=== PATIENT | female | born 1965 | race Caucasian/White ===

== ENCOUNTER 2018-01-25 03:35 | Inpatient (IN) | payer OTHER ==
[2018-01-25] VITALS (10 sets, daily range): BP systolic 98–134; BP diastolic 46–69
[~2018-01-25] VITALS: Ht 160 cm; Wt 92.1 kg
--- NOTE | 2018-01-25 03:35 | NUR ---
BIBA TO ER BED 10
--- NOTE | 2018-01-25 03:40 | NUR ---
52/F CAME IN W/ C/O 07/10 GENERALIZED ABD PAIN, ACUTE ONSET X YESTERDAY. N/V X 2, DENIES HEMATEMESIS, DIARRHEA/CONSTIPATION. ABD SOFT, ROUND, +TENDERNESS GENERALIZED. PMH: SCHIZOPHRENIA, BIPOLAR D/O, HYSTERECTOMY
[2018-01-25] MEDS ORDERED: DICYCLOMINE HCL LIQUID 20 MG, ALUMINUM HYD/MAG/SIMETHICONE 30 ML, LIDOCAINE VISCOUS 2% ... PO ONE ×3 (03:55)
[2018-01-25] MEDS ORDERED: ONDANSETRON 4 MG ODT PO ONE (03:55)
[2018-01-25 04:09] LABS: BASOPHILS % (AUTO) 0.1 % (0.0-2.0); HEMATOCRIT 43.3 % (36-48); HEMOGLOBIN 14.4 g/dL (12.0-16.0); LYMPHOCYTES # (AUTO) 2.1 K/uL (2.5-16.5); LYMPHOCYTES % (AUTO) 15.2 % (20.5-51.1); MEAN CORPUSCULAR HEMOGLOBIN 31 pg (27-31); MEAN CORPUSCULAR HGB CONC 33 g/dL (33-37); MONOCYTES # (AUTO) 0.5 K/uL (0.8-1.0); MONOCYTES % (AUTO) 3.5 % (1.7-9.3); NEUTROPHILS # (AUTO) 11.3 K/uL (1.8-7.7); NEUTROPHILS % (AUTO) 81.2 % (42.2-75.2); PLATELET COUNT (AUTO) 181 K/uL (140-450); RED BLOOD CELL COUNT(AUTO) 4.71 MIL/uL (4.20-5.40); RED CELL DISTRIBUTION WIDTH 13.5 % (11.6-13.7)
[2018-01-25 04:21] LABS: ANION GAP 13.4 (8-16); CARBON DIOXIDE 26.6 mmol/L (21-32); CREATININE 0.8 mg/dL (0.6-1.3)
[2018-01-25 04:26] LABS: ALBUMIN 3.8 g/dL (3.4-5.0); TOTAL BILIRUBIN 0.7 mg/dL (0.0-1.0)
[2018-01-25] MEDS ORDERED: NACL 0.9% 1,000 ML IV ONE (04:50)
[2018-01-25] MEDS ORDERED: KETOROLAC 30 MG/ML VIAL IVP ONE (04:50)
[2018-01-25] MEDS ORDERED: NACL 0.9% 1,000 ML IV SCH (05:08)
[2018-01-25] MEDS ORDERED: LEVOFLOXACIN 750 MG/D5W PREMIX 150 ML IV ONE (05:10)
[2018-01-25] MEDS ORDERED: metroNIDAZOLE 500 MG/NS PREMIX 100 ML IV ONE (05:10)
--- NOTE | 2018-01-25 05:10 | NUR ---
PT REPORTS SHE IS ADVENTISM AND IS UNABLE TO RECEIVE BLOOD AND BLOOD PRODUCTS
[2018-01-25] MEDS ORDERED: ESK300 PO (05:21)
[2018-01-25] MEDS ORDERED: OLAN20TA1 PO (05:21)
[2018-01-25] MEDS ORDERED: TEMA15CA11 PO (05:21)
[2018-01-25] MEDS ORDERED: FLUO10CA21 PO (05:21)
--- NOTE | 2018-01-25 05:33 | NUR ---
Patient will be admitted to care of VACA. Admited to MS. Will go to room 119B. Belongings list completed. Report to LEATHA MARTINEZ. IV INFUSING. LEATHA MARTINEZ INFORMED TO GIVE LEVAQUIN IVPB FIRST DOSE
--- NOTE | 2018-01-25 05:35 | NUR ---
RECEIVED PT FROM ER IN [facility] FOR CONTINUITY OF CARE. PT IS ABLE TO WALK TO BED. AWAKE AOX4. IV L WRIST 20G NS BOLUS 1L. NO SOB, NO S/S OF DISTRESS. SKIN INTACT, VITALS WNL. PT IS NPO. WILL CONTINUE TO MONITOR, BED LOWERED CALL LIGHT WITHIN REACH AND PT ORIENTED TO ROOM.
[2018-01-25 05:46] LABS: PROTHROMBIN TIME 10.5 secs (10.8-13.4)
--- NOTE | 2018-01-25 07:31 | NUR ---
GAVE REPORT TO DAY SHIFT NURSE FOR CONTINUITY OF CARE.
--- NOTE | 2018-01-25 07:32 | NUR ---
RECEIVED REPORT FROM DIRECTOR GLOBAL DEVELOPMENT NURSE AT BEDSIDE FOR CONTINUITY OF CARE. PT IS AWAKE AND ORIENTED. NPO. PT IS C/O PAIN IN ABD. TOLERABLE AT THIS TIME. IV L WRIST 20G NS AT 100ML INFUSING. AT BEDSIDE. O/R NURSES HERE TO TAKE PT FOR PROCEDURE. DR OTT IS THE SURGEON, FOR APPENDECTOMY. WILL AWAIT PT'S RETURN.
[2018-01-25] MEDS: BUPIVACAINE-MPF 0.25% 30 ML VIAL INJ ONE ×2 (07:56→09:00)
[2018-01-25] MEDS ORDERED: MIDAZOLAM 2 MG/2 ML VIAL ONE ×2 (07:58→08:20)
[2018-01-25] MEDS ORDERED: MEPERIDINE 50 MG/ML SYR ONE (07:58)
[2018-01-25] MEDS ORDERED: fentaNYL 0.05 MG/ML VIAL ONE ×2 (07:58→08:20)
[2018-01-25] MEDS ORDERED: GLYCOPYRROLATE 0.2 MG/ML VIAL ONE (08:00)
[2018-01-25] MEDS ORDERED: NEOSTIGMINE 1:1000 10 MG/10 ML VIAL ONE (08:00)
[2018-01-25] MEDS ORDERED: DEXAMETHASONE 4 MG/ML VIAL ONE (08:00)
[2018-01-25] MEDS ORDERED: PROPOFOL 200 MG/20 ML VIAL IV ONE (08:00)
[2018-01-25] MEDS ORDERED: ONDANSETRON 4 MG/2 ML VIAL ONE (08:00)
[2018-01-25] MEDS ORDERED: ROCURONIUM 50 MG/5 ML VIAL IV ONE (08:00)
[2018-01-25] MEDS ORDERED: SUCCINYLCHOLINE CHLORIDE 200 MG/10 ML VIAL IVP ONE (08:00)
[2018-01-25] MEDS ORDERED: DESFLURANE 240 ML BTL INH ONE (08:00)
[2018-01-25] MEDS ORDERED: MORPHINE SULFATE 4 MG/ML SYR ONE (08:20)
[2018-01-25] MEDS ORDERED: ENOXAPARIN 40 MG/0.4 ML SYR SUBQ SCH (09:00)
--- NOTE | 2018-01-25 09:13 | NUR ---
PATIENT HAS BEEN SCREENED AND CATEGORIZED LOW NUTRITION RISK. PATIENT WILL BE SEEN WITHIN 7 DAYS OF ADMISSION. 01/31/[address]
[2018-01-25] MEDS ORDERED: MORPHINE SULFATE 4 MG/ML SYR IVP PRN ×5 (09:15)
[2018-01-25] MEDS ORDERED: MIDAZOLAM 2 MG/2 ML VIAL IV ONE ×2 (09:15)
[2018-01-25] MEDS ORDERED: MORPHINE SULFATE 2 MG/ML SYR IVP PRN (09:15)
[2018-01-25] MEDS ORDERED: METOCLOPRAMIDE 10 MG/2 ML INJ VIAL IVP PRN ×2 (09:15)
[2018-01-25] MEDS ORDERED: diphenhydrAMINE 50 MG/ML VIAL IVP PRN (09:55)
[2018-01-25] MEDS ORDERED: ONDANSETRON 4 MG/2 ML VIAL IVP PRN (09:55)
[2018-01-25] MEDS ORDERED: MEPERIDINE 25 MG/ML SYR IVP PRN (09:55)
--- NOTE | 2018-01-25 11:11 | NUR ---
RETURNED FROM POST OP. PT IS AWAKE AND ORIENTED. NAUSEATED. GAVE HER A VOMIT BAG. PT HAD A LAP APPENDECTOMY. PT IS IN STABLE CONDITION. RUPTURED AND ABCESS. 3 ABD INCISION WITH DERMABOND. BESSIE DRAIN IN PLACE. V/S WITHIN NORMAL RANGE. BESSIE DRAIN 30ML DISCARDED. WILL CONTINUE TO MONITOR PT.
--- NOTE | 2018-01-25 12:10 | NUR ---
CHECKED ON PT. EMPTIED 30ML OF BLOOD FROM BESSIE DRAIN. WILL CONTINUE TO MONITOR PT.
--- NOTE | 2018-01-25 12:21 | NUR ---
CM NOTE INITIAL REVIEW FAXED TO [facility] [phone] VIJI # [phone]
[2018-01-25] MEDS: NACL 0.9% 1,000 ML IV SCH (13:10)
[2018-01-25] MEDS: metroNIDAZOLE 500 MG/NS PREMIX 100 ML IV SCH ×2 (13:11→21:24)
[2018-01-25] MEDS: MORPHINE SULFATE 4 MG/ML SYR IVP PRN ×2 (17:08→21:25)
--- NOTE | 2018-01-25 17:10 | NUR ---
ADMINISTERED PAIN MED. PAIN 03/10. PT TOLERATED WELL. EMPTIED 40ML OF BLOOD FROM BESSIE DRAIN. WILL CONTINUE TO MONITOR PT.
--- NOTE | 2018-01-25 19:15 | NUR ---
ENDORSED PT TO THE HEAD OF STORE OPERATIONS NURSE AT BEDSIDE FOR CONTINUITY OF CARE. PT IS IN STABLE CONDITION.
--- NOTE | 2018-01-25 19:16 | NUR ---
RECEIVED PT REPORT AT BEDSIDE FROM HONG FOR CONTINUITY OF CARE. PT IS CURRENTLY HAPPY WITH FAMILY VISITS. IV NOTED L WRIST 2G AT NS 120ML/HR. NO SOB. NO S/S OF DISTRESS. BED LOWERED. CALL LIGHT WITHIN REACH. WILL CONTINUE TO MONITOR.
--- NOTE | 2018-01-25 20:00 | NUR ---
PT CALLS MULTIPLE TIMES FOR DIFFERENT NEEDS. PAIN, ANXIETY, WATER, ECT. PT REQUEST TO HAVE HER PSYCH MEDS. PAGED AWAITING CALL BACK.
--- NOTE | 2018-01-26 00:30 | NUR ---
PT IS SLEEPING NO SOB NO S/S OF DISTRESS ON ROOM AIR. WILL CONTINUE TO MONITOR.
--- NOTE | 2018-01-26 02:30 | NUR ---
PT REQUESTING PAIN MEDS. ADMIN PAIN MEDS AND TOLD HER TO GET SOME REST. WILL CONTINUE TO MONITOR.
[2018-01-26] MEDS: NACL 0.9% 1,000 ML IV SCH ×4 (02:33→19:50)
[2018-01-26] MEDS: MORPHINE SULFATE 4 MG/ML SYR IVP PRN ×3 (02:34→12:59)
[2018-01-26] MEDS: metroNIDAZOLE 500 MG/NS PREMIX 100 ML IV SCH ×3 (04:42→22:00)
--- NOTE | 2018-01-26 05:33 | NUR ---
ASSESSED PT IS ASLEEP RESTING NO SOB NO S/S OF DISTRESS. WILL CONTINUE TO MONITOR.
[2018-01-26] MEDS: LEVOFLOXACIN 750 MG/D5W PREMIX 150 ML IV SCH (06:13)
[2018-01-26 07:23] LABS: HEMATOCRIT 39.7 % (36-48); HEMOGLOBIN 13.1 g/dL (12.0-16.0); LYMPHOCYTES # (AUTO) 2.8 K/uL (2.5-16.5); LYMPHOCYTES % (AUTO) 14.5 % (20.5-51.1); MEAN CORPUSCULAR HEMOGLOBIN 31 pg (27-31); MEAN CORPUSCULAR HGB CONC 33 g/dL (33-37); MEAN CORPUSCULAR VOLUME 93.6 fL (80-94); MONOCYTES # (AUTO) 1.3 K/uL (0.8-1.0); MONOCYTES % (AUTO) 6.7 % (1.7-9.3); NEUTROPHILS # (AUTO) 15.2 K/uL (1.8-7.7); NEUTROPHILS % (AUTO) 78.8 % (42.2-75.2); PLATELET COUNT (AUTO) 194 K/uL (140-450); RED BLOOD CELL COUNT(AUTO) 4.24 MIL/uL (4.20-5.40); WHITE BLOOD COUNT (AUTO) 19.3 K/uL (4.8-10.8)
--- NOTE | 2018-01-26 07:27 | NUR ---
GAVE PT REPORT TO DAYSHIFT NURSE AT BEDSIDE FOR CONTINUITY OF CARE.
--- NOTE | 2018-01-26 07:28 | NUR ---
RECEIVED REPORT FROM ASSISTANT DIRECTOR OF ADMISSIONS NURSE AT BEDSIDE FOR CONTINUITY OF CARE. PATIENT AWAKE AND ALERT, ABLE TO AMBULATE WITH ASSIST, RESPIRATIONS EVEN AND UNLABORED. NO DISTRESS OR SOB NOTED 2L O2 VIA NC. IV INTACT, PATENT, AND ASYMPTOMATIC, INFUSING IV WELL. UPDATED BOARD. UPDATED PATIENT WITH PLAN OF CARE. PATIENT VERBALIZED UNDERSTANDING. SAFETY PRECAUTION IN PLACE, BED ON LOWEST SETTING, BED ALARM ON, CALL LIGHT WITHIN REACH, WILL CONTINUE TO MONITOR PATIENT.
[2018-01-26 07:38] LABS: ALBUMIN 3.3 g/dL (3.4-5.0); ANION GAP 14.8 (8-16); CARBON DIOXIDE 24.5 mmol/L (21-32); MAGNESIUM 1.9 mg/dL (1.8-2.4); POTASSIUM 4.3 mmol/L (3.5-5.1); TOTAL BILIRUBIN 1.2 mg/dL (0.0-1.0)
[2018-01-26 08:00] VITALS: BP 143/78
[2018-01-26] MEDS: ONDANSETRON 4 MG/2 ML VIAL IVP PRN ×2 (08:50→15:19)
--- NOTE | 2018-01-26 09:03 | NUR ---
PATIENT VOMITED. ZOFRAN PRN GIVEN. PT ALSO C/O 6/10 ABD PAIN. MORPHINE PRN GIVEN. PT TOLERATED THEM WELL. AND FAMILY FRIEND AT BEDSIDE. SAFETY PRECAUTION IN PLACE, CALL LIGHT WITHIN REACH. WILL CONTINUE TO MONITOR PATIENT.
[2018-01-26] MEDS: LORazepam 2 MG/ML VIAL IVP PRN (11:26)
--- NOTE | 2018-01-26 11:26 | NUR ---
PATIENT AGITATED AND ANXIOUS, ASKING FOR WHEN THE DOCTOR WILL BE IN TO SEE HER, AND WHEN SHE CAN HAVE HER MEDICATIONS. INFORMED THE PATIENT THAT THE DOCTOR IS ON HER WAY AND WILL BE HERE TODAY TO SEE HER. PATIENT VERBALIZED UNDERSTANDING. ATIVAN PRN ADMINISTERED. PATIENT TOLERATED IT WELL. HR 125 AND PULSE OX 94% ON 4L O2 VIA NC. AND FRIEND AT BEDSIDE. PATIENT DENIES PAIN AT THIS TIME. SAFETY PRECAUTION IN PLACE, BED ON LOWEST SETTING, CALL LIGHT WITHIN REACH, WILL CONTINUE TO MONITOR PATIENT.
--- NOTE | 2018-01-26 12:59 | NUR ---
PT C/O 03/10 ABD PAIN. MORPHINE PRN ADMINISTERED. PATIENT TOLERATING IT WELL. HR 129 PULSE OX 92% ON 4L VIA NC. PATIENT STILL AGITATED ASKING FOR HER MEDICATION AND TO SEE THE DOCTOR. ASSURED PT THAT DOCTOR WILL BE IN TO SEE HER. PATIENT VERBALIZED UNDERSTANDING.
--- NOTE | 2018-01-26 13:15 | NUR ---
PATIENT HR 138 PULSE OX 90%, BREATHING LABORED AND WHEEZING, PAGED RT. RT CAME AND ASSESSED THE PATIENT. CANNOT GIVE BREATHING TREATMENT AT THIS TIME BECAUSE OF HIGH PULSE. WILL CONTINUE TO FREQUENTLY MONITOR AND ASSESS THE PATIENT. AND FRIEND AT BEDSIDE. BESSIE DRAIN 20 ML OF SANGUINOUS FLUID. SAFETY PRECAUTION IN PLACE, CALL LIGHT WITHIN REACH, WILL CONTINUE TO MONITOR PATIENT.
--- NOTE | 2018-01-26 15:19 | NUR ---
PATIENT FELT NAUSEATED, REQUESTED FOR ZOFRAN. ZOFRAN PRN ADMINISTERED. PATIENT TOLERATED IT WELL. AND FRIEND AT BEDSIDE. NO SIGNS OF DISTRESS OR SOB NOTED ON ROOM AIR, PATIENT DENIES PAIN. SAFETY PRECAUTION IN PLACE, BED ON LOWEST SETTING, BED ALARM ON, CALL LIGHT WITHIN REACH, WILL CONTINUE TO MONITOR PATIENT.
[2018-01-26 16:00] VITALS: BP 139/83
[2018-01-26] MEDS: LITHIUM CARBONATE 300 MG TAB PO SCH ×2 (17:43→21:00)
--- NOTE | 2018-01-26 17:43 | NUR ---
ORDERED MEDICATION GIVEN. PATIENT TOLERATING IT WELL. HR 109, PULSE OX 92% ON 2L O2 VIA NC. AT BEDSIDE. PATIENT EATING DINNER. SAFETY PRECAUTION IN PLACE, BED ON LOWEST SETTING, CALL LIGHT WITHIN REACH, WILL CONTINUE TO MONITOR PATIENT.
--- NOTE | 2018-01-26 19:25 | NUR ---
REPORT GIVEN TO OBSTETRICS NURSE PRACTITIONER NURSE AT BEDSIDE FOR CONTINUITY OF CARE. PATIENT IN STABLE CONDITION.
--- NOTE | 2018-01-26 19:55 | NUR ---
PATIENT WAS ASSISTED TO THE BATHROOM TO VOID. SHE WAS ABLE TO GO BACK TO BED BUT WAS NOTED TO BE SHORT OF BREATH AND HEART RATE WAS ELEVATED. PATIENT WAS ENDORSED TO STAFF NURSE AND WHEN HE NOTED CHANGE OF CONDITION [facility]PON[facility] WAS CALLED.
[2018-01-26] MEDS: TEMAZEPAM 15 MG CAP PO SCH (21:00)
[2018-01-26] MEDS: OLANZapine 5 MG TAB PO SCH (21:00)
--- NOTE | 2018-01-26 21:25 | NUR ---
RECEIVED PATIENT REPORT FROM JUAN BOLAND. PATIENT IS LETHARGIC AND IS HAVING LABORED BREATHING. CALLED [facility]PON[facility]
[2018-01-26] MEDS ORDERED: ALBUTEROL SULFATE/IPRATROPIU 3 ML SOL IH ONE (21:34)
--- NOTE | 2018-01-26 21:35 | NUR ---
SCHEDULED PO MEDS NOT ADMINISTERED. PATIENT IS LETHARGIC
[2018-01-26] MEDS ORDERED: ALBUTEROL SULFATE/IPRATROPIU 3 ML SOL IH PRN (21:50)
--- NOTE | 2018-01-26 21:50 | NUR ---
RAP[facility] RESPONSE WAS CALLED FOR THE PT WITH SOB , SAT 94%, BS ARE WHEEZING AND RALES.GAVE PT A HHN TX WITH DUONEB, SAT IMPROVED. PT WAS TRANSFER TO ICU3, ABG WAS DONE .
--- NOTE | 2018-01-26 21:50 | NUR ---
PATIENT RECEIVING BREATHING TX. SPOKE WITH DR FIELDS AND NOTIFIED HIM ABOUT THE PATIENT'S CHANGE IN LEVEL OF CONSCIOUSNESS AND BREATHING PATTERN . ORDERS RECEIVED
[2018-01-26 22:05] VITALS: BP 135/81
--- NOTE | 2018-01-26 22:05 | NUR ---
RECEIVED PT FROM [facility] FLOOR,REPORT GIVEN BY SANDY MARTINEZ. PT IS S/S RAPID RESPONSE D/T SOB,PER REPORT PT WAS GOING TO USE REST ROOM AND GET SOB AND LETHARGIC.PT IS SO SLEEPY,EASY TO AWAKE, ALERT, ABLE TO ANSWER SIMPLE QUESTION AT THIS TIME. PT COME WITH HER . PT S/P APPENDECTOMY ON 01/25/18 BY . PT ON O2 AT 4 LPM AT THIS TIME WITH SPO2 95 %, ELAINA LUNGS SOUND WHEEZING,TACHYCARDIA ON MONITOR, NO EDEMA NOTED. IV SITE TO RIGHT HAND NO 22 GAUGE INTACT WELL, IV NS AT 120 CC/HR.SKIN NON INTACT, DRY SCABS FROM SURGERY INCISION TO R/L UPPER ABD AND LEFT LOWER ADB. BESSIE DRAIN TO RIGHT LOWER ABD WITH BRIGHT RED BLOOD ABOUT 20 CC . SCD TO BLE. PT UNDERSTAND TO NOT GET UP WITH OUT ASSISTANCE AND USE CALL LIGHT FOR ANY NEEDS. GENTLE CARE GIVEN. KEPT CLEAN AND DRY. CALL LIGHT IN REACH.
--- NOTE | 2018-01-26 22:30 | NUR ---
ABG DONE, CHEST X RAY DONE WILL FOLLOW UP THE RESULT WITH MD.
--- NOTE | 2018-01-26 22:47 | NUR ---
FLAGYL ABT GIVEN ORDER.
--- NOTE | 2018-01-26 23:20 | NUR ---
SPEAK WITH ROSANA FROM RADIOLOGY DEPARTMENT FOLLOW UP FOR CHEST X-RAY RESULT.SHE SAID RESULT IN PROGRESS OF READING.
--- NOTE | 2018-01-26 23:45 | NUR ---
PAGED DR. WALLER TO REPORT THE ABG, CHEST XRAY AND 12 LEAD EKG RESULT;CALLED BACK IMMEDIATELY, UPDATED ON PATIENTS LATEST MEDICAL CONDITION, WITH ORDERS TO PUT PATIENT ON BIPAP AND TO DO TROPONIN NOW AND TOMORROW; CARRIED OUT.
[2018-01-27] VITALS (28 sets, daily range): BP systolic 108–157; BP diastolic 67–94
--- NOTE | 2018-01-27 00:10 | NUR ---
GIVE NEW ORDER FOR BIPAP. RT AT BED SIDE. EXPLAIN TO PT AND THE PURPOSE OF BI-PAP, APPLIED BIPAP WITH SETTING I/E 12/5 ,RATE 12 AND FIO2 40 %, PT TOLERATING WELL, SPO2 99%. PT WAS HAVING EPISODE ST ELEVATION ,EKG WAS DONE AND MD AWARE RESULT, TROPONIN STAT AND IN AM, LAB MADE AWARE AND BLOOD DRAWN. PT DENIES ANY CHEST PAIN OR ANY PAIN AT THIS TIME. PT SAID SHE JUST SLEEPY. GENTLE CARE GIVEN. KEPT CLEAN AND DRY. AT BED SIDE.CALL LIGHT IN REACH.
--- NOTE | 2018-01-27 00:45 | NUR ---
PAGE TO REPORT THE TROPONIN RESULT 0.143, WAITING FOR RETURN CALL.
--- NOTE | 2018-01-27 01:20 | NUR ---
PLACED CALL BACK TO SRIDHAR PAUL AND MADE MD AWARE TROPONIN LEVEL 0.143. PER TO CONSULT DR.PALIWAL CHRISTIE MINIBUS DRIVER, SAID THAT HE WILL CALL DR. DUMAS IN AM.
--- NOTE | 2018-01-27 03:00 | NUR ---
PT SLEEP WELL, NO S/S OF RESP DISTRESS,NO SOB.
[2018-01-27] MEDS: NACL 0.9% 1,000 ML IV SCH ×2 (05:00→11:51)
[2018-01-27] MEDS: metroNIDAZOLE 500 MG/NS PREMIX 100 ML IV SCH ×2 (05:11→13:20)
--- NOTE | 2018-01-27 06:17 | NUR ---
IV ABTS GIVEN. PT IS AWAKE. AT BED SIDE.
[2018-01-27] MEDS: LEVOFLOXACIN 750 MG/D5W PREMIX 150 ML IV SCH (06:18)
--- NOTE | 2018-01-27 06:51 | NUR ---
REC'D PT ON VISION BIPAP SETTINGS / RR 12 FIO2 40% ALARMS ON AND FUNCTIONING PROPERLY, BVM AT SIDE OF BIPAP AND BIPAP IS PLUGGED INTO RED OUTLET, B\S ARE CLEAR BILATERALLY, PT IS WEARING LARGE FACE MASK WITH PROTETIC GEL IN PLACE PT IS AWAKE AND ALERT TALKING TO FAMILY AT BEDSIDE
--- NOTE | 2018-01-27 07:23 | NUR ---
REPORT GIVEN TO AM SHIFT. PT IS STABLE AND SLEEPING AT THIS TIME.
--- NOTE | 2018-01-27 07:30 | NUR ---
RECEIVED REPORT FROM BINGO CASHIER RN. PT IS RESTING COMFORTABLY AT THIS TIME. SINUS RHYTHM ON MONITOR. ON BIPAP W/ SETTINGS I/E 12/5, RR 12, FIO2 40%. NO SOB OR RESPIRATORY DISTRESS NOTED AT THIS TIME. LUNGS SOUND CLEAR BILATERALLY. PERIPHERAL IV G22 TO RIGHT HAND ASYMPTOMATIC, PATENT AND INTACT, RUNNING NORMAL SALINE AT 120 ML/HR. PT IS S/P APPENDECTOMY ON 01/25/18 BY . DRY SCABS FROM SURGERY INCISION TO BILATERAL UPPER ABDOMEN AND LEFT LOWER ABDOMEN NOTED. BESSIE DRAIN TO RIGHT LOWER ABD WITH BRIGHT RED BLOOD ABOUT [address] SCDS IN PL[address] FOR VTE PROPHYLAXIS. BED IN LOWEST POSITION AND CALL LIGHT WITHIN REACH. NO C/O PAIN OR DISCOMFORT AT THIS TIME. WILL CONTINUE TO MONITOR.
--- NOTE | 2018-01-27 07:45 | NUR ---
PT STATED THE NEED TO URINATE. BEDPAN PROVIDED. VOIDS FREELY. NO SOB OR DISTRESS NOTED. VITAL SIGNS STABLE. WILL CONTINUE TO MONITOR.
--- NOTE | 2018-01-27 08:15 | NUR ---
BREAKFAST PROVIDED. PT C/O SOB. COULD NOT TOLERATE TO BE ON NASAL CANULA AND OFF BIPAP DURING MEAL. RT AND CHARGE NURSE AT BEDSIDE. PT WAS BACK ON BIPAP RIGHT AWAY. HR 125, O2 SAT 95%, RR 33. NO C/O DIFFICULTY BREATHING AFTER BEING PUT ON BIPAP. WILL CONTINUE TO MONITOR.
--- NOTE | 2018-01-27 08:45 | NUR ---
MEDICATIONS ADMINISTERED ORDERED. PT TOLERATED WELL.
--- NOTE | 2018-01-27 08:45 | NUR ---
BIPAP CHECK, PT IS VERY AGITATED AT THIS TIME, WAS GIVEN HER MEDS
[2018-01-27] MEDS: LITHIUM CARBONATE 300 MG TAB PO SCH ×4 (08:52→20:30)
[2018-01-27] MEDS ORDERED: FLUoxetine 10 MG CAP PO SCH (09:00)
[2018-01-27] MEDS ORDERED: FLUoxetine 20 MG CAP PO SCH (10:14)
--- NOTE | 2018-01-27 11:12 | NUR ---
BIPAP CHECK PT IS SLEEPING WITH FAMILY AT BEDSIDE NO SIGNS OF DISTRESS NOTED AT THIS TIME
--- NOTE | 2018-01-27 11:33 | NUR ---
PT IS SLEEPING COMFORTABLY AT THIS TIME. FAMILY FRIEND AT BEDSIDE. SAFETY PRECAUTIONS IN PLACE.
--- NOTE | 2018-01-27 13:05 | NUR ---
BIPAP CHECK, PT IS AWAKE WITH FAMILY AT BEDSIDE READJUSTED THE FACE MASK
--- NOTE | 2018-01-27 13:25 | NUR ---
MEDICATIONS ADMINISTERED ORDERED. PT TOLERATED WELL. FAMILY AT BEDSIDE. SAFETY MEASURES ENSURED AND NEEDS WELL ATTENDED.
--- NOTE | 2018-01-27 15:03 | NUR ---
DR. VACA TO SEE AND EXAMINE PT. WILL FOLLOW UP ON ORDERS.
[2018-01-27] MEDS ORDERED: FUROSEMIDE 20 MG/2 ML VIAL IVP ONE (15:15)
--- NOTE | 2018-01-27 15:15 | NUR ---
DR. VACA ORDERED NM PULMONARY VQ SCAN AND CT CHEST W/O CONTRAST. DR. VACA MADE AWARE THAT PT DOES NOT TOLERATED TO BE OFF BIPAP AT THIS TIME. PER DR. VACA, VQ SCAN AND CT CHEST CAN BE DONE WHEN THE PT FEELS BETTER AND CAN BE WEANED OFF BIPAP.
--- NOTE | 2018-01-27 15:27 | NUR ---
bipap check, pt is getting ultra sound now and no signs of distress noted
[2018-01-27] MEDS ORDERED: FUROSEMIDE 40 MG/4 ML VIAL IVP SCH ×2 (15:30)
[2018-01-27] MEDS: LORazepam 2 MG/ML VIAL IVP PRN (15:49)
[2018-01-27] MEDS: AZITHROMYCIN 500 MG in DEXTROSE 5% 250 ML IV SCH (15:49)
--- NOTE | 2018-01-27 16:10 | NUR ---
SEEN AND EXAMINED BY DR. ALESIA Landry WILL FOLLOW UP ON ORDERS.
[2018-01-27] MEDS: ONDANSETRON 4 MG/2 ML VIAL IVP PRN (16:40)
--- NOTE | 2018-01-27 16:45 | NUR ---
PT HAD AN EPISODE OF VOMITING. ZOFRAN ADMINISTERED ORDERED. WILL CONTINUE TO MONITOR.
--- NOTE | 2018-01-27 17:00 | NUR ---
PT REFUSED ORDERED MEDICATION STATING THAT SHE WILL VOMIT IF SHE TAKES IT.
--- NOTE | 2018-01-27 17:10 | NUR ---
BIPAP CHECK, FAMILY AT BEDSIDE
--- NOTE | 2018-01-27 18:26 | NUR ---
SLEEPING COMFORTABLY AT THIS TIME. AT BEDSIDE. VSS. SAFETY PRECAUTIONS IN PLACE.
[2018-01-27] MEDS: ALBUTEROL SULFATE/IPRATROPIU 3 ML SOL IH SCH (19:00)
--- NOTE | 2018-01-27 19:30 | NUR ---
REPORT GIVEN TO CERTIFIED TECHNICIAN RN FOR CONTINUITY OF CARE. PT IS IN STABLE CONDITION.
--- NOTE | 2018-01-27 19:35 | NUR ---
REPORT RECEIVED FROM MORNING NURSE, JUAN BRYAN. PT IS RESTING IN BED BUT EASILY AROUSABLE WITH NAME CALLED. A&OX3. PERRL. BILATERAL LUNGS SOUND CLEAR. ON BIPAP I:E=12/5, RR=12 AND 40% FIO2. ABD WITH DRESSING CLEAN AND INTACT S/P APPENDECTOMY ON 01/15/2018 AND BESSIE DRAINAGE ON RLQ WITH SEROSANGUINEOUS DRAINAGE NOTED. PT DENIES PAIN , DISCOMFORT OR N/V. BOWEL SOUNDS ACTIVE FROM ALL 4 QUADS. PT ON CLEAR LIQUID DIET. PERIPHERAL IV TO RIGHT HAND 22G PATENT AND ASYMPTOMATIC. CAP REFILL WITHIN 3 SEC. ON BILATERAL SCD. GENERALIZED WEAKNESS NOTED. ON CONTINUOS AUTOMOTIVE SERVICE ADVISOR AND SR ON MONITOR AT THIS TIME. VSS. AFEBRILE. CALL LIGHT IN REACH AND BED TO THE LOWEST POSITION AND LOCKED. WILL CONTINUE TO MONITOR.
[2018-01-27] MEDS: cefTRIAXone 2,000 MG in DEXTROSE 5% 100 ML IV SCH (20:27)
[2018-01-27] MEDS: TEMAZEPAM 15 MG CAP PO SCH (20:29)
[2018-01-27] MEDS: OLANZapine 5 MG TAB PO SCH (20:30)
--- NOTE | 2018-01-27 20:45 | NUR ---
NOTED INCREASED HR RUNNING B/W 170-190. PT AWAKE AND DENIES ANY DISCOMFORT AT THIS TIME.
--- NOTE | 2018-01-27 20:50 | NUR ---
PATIENT AWAKE AND ALERT. INCREASED FIO2 TO 100% AT THIS TIME DUE TO HR GREATER THAN 178bpm . EKG DONE, SAO2 100% RR 24 BS CLEAR
--- NOTE | 2018-01-27 20:51 | NUR ---
REPORTED Angelic HERRERA REGARDING AFIB WITH RVR WITH PAC'S. NEW ORDER RECEIVED. NOTED AND WILL CARRY OUT.
[2018-01-27] MEDS ORDERED: AMIODARONE 450 MG/9 ML VIAL IV ONE (21:10)
[2018-01-27] MEDS ORDERED: AMIODARONE 150 MG/3 ML VIAL IV ONE (21:12)
--- NOTE | 2018-01-27 21:16 | NUR ---
AMIODARONE BOLUS DRIP STARTED ORDERED.
[2018-01-27] MEDS: AMIODARONE 450 MG in DEXTROSE 5% 250 ML IV SCH (21:35)
--- NOTE | 2018-01-27 21:35 | NUR ---
AMIODARONE MAINTENANCE DRIP STARTED @ 1MG/MIN
[2018-01-28] VITALS (20 sets, daily range): BP systolic 105–136; BP diastolic 67–83
--- NOTE | 2018-01-28 | NUR ---
CONTINUING WITH AMIODARONE DRIP @1MG/MIN. RN=[id number] AND BF=129/76. CONTINUE TO BE TOLERATING BIPAP. PT DENIES PAIN OR DISCOMFORT. AFEBRILE. WILL CONTINUE TO MONITOR.
[2018-01-28] MEDS: ALBUTEROL SULFATE/IPRATROPIU 3 ML SOL IH SCH ×4 (01:11→19:55)
--- NOTE | 2018-01-28 02:07 | NUR ---
PT VERBALIZED WANTING TO URINATE BUT SHE COULD NOT. ABDOMEN NOTED DISTENDED. PAGED DR. VACA. AWAITING A PHONE CALL.
--- NOTE | 2018-01-28 02:10 | NUR ---
DR. CAZARES, GUNSMITH APPRENTICE FOR DR. VACA CALLED BACK AND NOTIFIED PT BLADDER BEING DISTENDED AND NO URINE OUTPUT DURING THE WHOLE SHIFT. ORDER RECEIVED AND WILL CARRY OUT.
--- NOTE | 2018-01-28 02:19 | NUR ---
EXPLAINED SHAW CATHETER ORDER RECEIVED AND PROCEDURES PRIOR TO PERFORMING. PT AGREED AND VERBALIZED UNDERSTANDING. SHAW CATHETER INSERTED ORDERED WITH STERILE TECHNIQUE. SHAW CATH SECURED ON THE RIGHT UPPER LEG. PT TOLERATED WELL. NOTED LIGHT RONY CLEAR URINE OF 2000ML IN THE BAG. UA SAMPLE COLLECTED AND SENT TO LAB.
[2018-01-28 02:40] LABS: APPEARANCE,URINE CLEAR (CLEAR); BILIRUBIN,URINE NEGATIVE (NEGATIVE); BLOOD, URINE NEGATIVE (NEGATIVE); COLOR,URINE YELLOW (YELLOW); LEUKOCYTE ESTERASE ,URINE NEGATIVE (NEGATIVE); NITRITE, URINE NEGATIVE (NEGATIVE); UGLUCOSE NEGATIVE (NEGATIVE)
[2018-01-28] MEDS ORDERED: AMIODARONE 450 MG/9 ML VIAL IV ONE (03:56)
--- NOTE | 2018-01-28 04:00 | NUR ---
SR ON MAINTENANCE SPECIALIST. VSS. PT DENIES PAIN OR DISCOMFORT. URINE CLEAR YELLOW IN THE SHAW BAG. CONTINUING WITH BIPAP ORDERED. ASSISTED WITH REPOSITION. WILL CONTINUE TO MONITOR.
[2018-01-28] MEDS: AMIODARONE 450 MG in DEXTROSE 5% 250 ML IV SCH (04:08)
--- NOTE | 2018-01-28 06:07 | NUR ---
MORNING CARE PROVIDED AND TOLERATED WELL. CONTINUING WITH BIPAP WITH SAME SETTING THE BEGINNING OF THE SHIFT. SR ON KINDERGARTEN ASSISTANT. CONTINUING WITH AMIODARONE DRIP ORDERED. VSS AND DENIES PAIN OR DISCOMFORT. BED KEPT TO THE LOWEST AND LOCKED. CALL LIGHT IN REACH. WILL CONTINUE TO MONITOR.
--- NOTE | 2018-01-28 06:10 | NUR ---
CHECKED WITH RADIOLOGY FOR VQ SCAN AND CT OF CHEST, AND WAS TOLD THAT THEY WILL CALL US BACK WHEN THE SPLITTING MACHINE FEEDER WILL BE AVAILABLE.
--- NOTE | 2018-01-28 06:47 | NUR ---
RECEIVED PTON VISION BIPAP ST 12\5 RR12 FIO2 40 ALARMS ARE ON AND AUDIBLE BMV HOB PT IN HF AWOKE BRIEFLY WEARING F\F MASK SIZE LG GEL UNDER MASK HHN GIVEN I\L WITH 3 MG DUONEB BIPAP PLUGGED INTO RED OUTLET
--- NOTE | 2018-01-28 07:17 | NUR ---
RECEIVED REPORT FROM NIGHT RN FOR CONTINUITY OF CARE.
--- NOTE | 2018-01-28 07:23 | NUR ---
REPORT GIVEN TO MORNING SHIFT RN FOR CONTINUITY OF CARE. PT VSS AND RR EVEN AND UNLABORED. ALL SAFETY PRECAUTIONS ARE IN PLACE.
--- NOTE | 2018-01-28 07:51 | NUR ---
PT OFF BIPAP TO EAT AND PLACED ON 3LNC THE START OF WEANING FROM BIPAP
[2018-01-28] MEDS: LITHIUM CARBONATE 300 MG TAB PO SCH ×4 (08:47→20:58)
[2018-01-28] MEDS ORDERED: FLUoxetine 20 MG CAP PO SCH (09:00)
[2018-01-28] MEDS ORDERED: FUROSEMIDE 40 MG/4 ML VIAL IVP SCH (09:00)
--- NOTE | 2018-01-28 09:03 | NUR ---
TAKEN TO CT, PATIENT IN STABLE CONDITION
--- NOTE | 2018-01-28 09:20 | NUR ---
BACK FROM CT, HOOKED BACK UP TO MONITOR.
[2018-01-28] MEDS: cefTRIAXone 2,000 MG in DEXTROSE 5% 100 ML IV SCH (09:48)
[2018-01-28 09:57] LABS: BASOPHILS % (AUTO) 0.1 % (0.0-2.0); HEMATOCRIT 38.8 % (36-48); HEMOGLOBIN 12.7 g/dL (12.0-16.0); LYMPHOCYTES # (AUTO) 3.1 K/uL (2.5-16.5); LYMPHOCYTES % (AUTO) 16.2 % (20.5-51.1); MEAN CORPUSCULAR HEMOGLOBIN 30 pg (27-31); MEAN CORPUSCULAR HGB CONC 33 g/dL (33-37); MONOCYTES # (AUTO) 1.5 K/uL (0.8-1.0); MONOCYTES % (AUTO) 7.8 % (1.7-9.3); NEUTROPHILS # (AUTO) 14.3 K/uL (1.8-7.7); NEUTROPHILS % (AUTO) 75.9 % (42.2-75.2); PLATELET COUNT (AUTO) 231 K/uL (140-450); RED BLOOD CELL COUNT(AUTO) 4.22 MIL/uL (4.20-5.40); RED CELL DISTRIBUTION WIDTH 13.7 % (11.6-13.7); WHITE BLOOD COUNT (AUTO) 18.9 K/uL (4.8-10.8)
[2018-01-28 10:20] LABS: ANION GAP 8.9 (8-16); CARBON DIOXIDE 30.8 mmol/L (21-32); POTASSIUM 3.7 mmol/L (3.5-5.1)
[2018-01-28 10:24] LABS: CREATININE 0.8 mg/dL (0.6-1.3)
[2018-01-28 10:25] LABS: ALBUMIN 2.8 g/dL (3.4-5.0); TOTAL BILIRUBIN 0.8 mg/dL (0.0-1.0)
[2018-01-28] MEDS ORDERED: PROBIOTIC SCREEN 1 EA MISC MC PRN (11:20)
--- NOTE | 2018-01-28 12:12 | NUR ---
CM NOTE CONCURRENT REVIEW FAXED TO [facility] [phone] VIJI # [phone]
[2018-01-28] MEDS: LORazepam 2 MG/ML VIAL IVP PRN (12:37)
[2018-01-28] MEDS: AZITHROMYCIN 500 MG in DEXTROSE 5% 250 ML IV SCH (14:50)
--- NOTE | 2018-01-28 15:10 | NUR ---
DR Angelic DUMAS IN SEEN AND EXAMINED PATIENT.
[2018-01-28] MEDS: ONDANSETRON 4 MG/2 ML VIAL IVP PRN (15:12)
--- NOTE | 2018-01-28 15:20 | NUR ---
DR VACA IN, SEEN AND EXAMINED PATIENT. WILL FOLLOW UP WITH ORDERS
--- NOTE | 2018-01-28 19:15 | NUR ---
REPORT GIVEN TO NOC RN FOR CONTINUITY OF CARE. PATIENT IN STABLE CONDITION.
--- NOTE | 2018-01-28 19:29 | NUR ---
RECEIVED SBAR FROM DEV MARTINEZ. PATIENT IS GSC 15 AND ABLE TO MAKE NEEDS KNOWN. PATIENT HAS PLEASANT DEMEANOR AND IS QUIETLY RESTING IN BED WATCHING TV. VSS AND PATIENT IS AFEBRILE. DENIES PAIN OR DISCOMFORT. BREATH SOUNDS ARE CLEAR UPON AUSCULTATION. PATIENT IS OXYGEN THERAPY VIA NASAL CANNULA AT 3 LPM. TOLERATING WELL. NO SIGNS OF SOB NOTED. ACTIVE BOWEL SOUNDS NOTED. THERE IS A SHAW CATHETER IN PLACE DRAINING TO GRAVITY WITH MODERATE AMOUNT OF CLEAR YELLOW URINE NOTED. SCDS ARE IN PLACE FOR VTE PROTOCOL. THERE IS A #22 IN THE LEFT HAND SALINE LOCK AND THERE IS A #20 IN THE RAC NOTED. SITES ARE DRY, INTACT, AND ASYMPTOMATIC. INITIAL ASSESSMENT COMPLETED. NEEDS MET AT THIS TIME. HOB AT 30 DEGREES WITH BED IN LOWEST POSITION. CONTINUE TO MONITOR PATIENT. Addendum: 01/29/18 at 0114 by Fabi Lauren RN #[id number] IN LEFT HAND, NOT #22.
--- NOTE | 2018-01-28 19:55 | NUR ---
SCHEDULED BREATHING TX ADMINISTERED. TOLERATED TX WELL, NO ADVERSE SIDE EFFECTS. ON 3L NC. O2 SAT 96%. NO RESPIRATORY DISTRESS NOTED AT THIS TIME. WILL CONTINUE TO MONITOR.
[2018-01-28] MEDS: metroNIDAZOLE 500 MG/NS PREMIX 100 ML IV SCH (20:57)
[2018-01-28] MEDS: TEMAZEPAM 15 MG CAP PO SCH (20:58)
[2018-01-28] MEDS: OLANZapine 5 MG TAB PO SCH (20:59)
[2018-01-28] MEDS: CARVEDILOL 6.25 MG TAB PO SCH (20:59)
--- NOTE | 2018-01-28 21:00 | NUR ---
DR. HOLT PRESENT AT BEDSIDE. UPDATED MD ON PATIENT'S STATUS. NO NEW ORDERS RECEIVED AT THIS TIME.
--- NOTE | 2018-01-28 21:09 | NUR ---
PATIENT TOLERATED DUE MEDICATIONS. NO SIGNS OF DISTRESS. NEEDS MET AT THIS TIME. HOB AT 30 DEGREES WITH BED IN LOWEST POSITION. CALL LIGHT WITHIN REACH. CONTINUE TO MONITOR PATIENT.
--- NOTE | 2018-01-28 22:01 | NUR ---
ROUNDED ON PATIENT. PATIENT RESTING QUIETLY IN BED. VSS. BREATHING IS EVEN AND UNLABORED. HOB AT 30 DEGREES WITH BED IN LOWEST POSITION. CALL LIGHT WITHIN REACH. CONTINUE TO MONITOR PATIENT.
--- NOTE | 2018-01-28 23:45 | NUR ---
PATIENT TAKEN OFF UNIT TO CT ANGIO. PATIENT IN STABLE CONDITION.
[2018-01-29] VITALS (9 sets, daily range): BP systolic 120–130; BP diastolic 71–78
--- NOTE | 2018-01-29 00:15 | NUR ---
PATIENT BACK ON UNIT FROM CT ANGIO. MORNING CARE RENDERED. CHANGED LINENS AND GOWN. TOLERATED WELL. NEEDS MET AT THIS TIME. HOB AT 30 DEGREES WITH BED IN LOWEST POSITION. CALL LIGHT WITHIN REACH. CONTINUE TO MONITOR PATIENT.
[2018-01-29] MEDS: LORazepam 2 MG/ML VIAL IVP PRN (01:07)
[2018-01-29] MEDS: ALBUTEROL SULFATE/IPRATROPIU 3 ML SOL IH SCH ×4 (01:49→19:04)
--- NOTE | 2018-01-29 03:49 | NUR ---
PATIENT AWAKE AND RESTING QUIETLY IN BED. PATIENT REQUESTED WATER. PROVIDED PATIENT WITH 1 CUP OF WATER. PATIENT'S NEEDS MET AT THIS TIME. HOB AT 30 DEGREES WITH BED IN LOWEST POSITION. CALL LIGHT WITHIN REACH. CONTINUE TO MONITOR PATIENT.
[2018-01-29] MEDS: metroNIDAZOLE 500 MG/NS PREMIX 100 ML IV SCH ×3 (05:33→20:13)
--- NOTE | 2018-01-29 05:45 | NUR ---
PATIENT REPOSITIONED FOR COMFORT. HOB AT 30 DEGREES WITH BED IN LOWEST POSITION. CALL LIGHT WITHIN REACH. CONTINUE TO MONITOR PATIENT.
--- NOTE | 2018-01-29 07:06 | NUR ---
PATIENT SLEEPING IN BED, WITH NO SIGNS OF SOB NOTED. BREATHING IS EVEN AND UNLABORED. ALL PATIENT'S NEEDS ATTENDED TO DURING SHIFT. SBAR GIVEN TO EIRENE RN FOR CONTINUITY OF CARE.
--- NOTE | 2018-01-29 07:08 | NUR ---
RECEIVED BEDSIDE REPORT FROM WELL SERVICE FLOORPERSON RN, DELORIS, FOR CONTINUITY OF CARE. PATIENT IS ASLEEP, AAOX4, ABLE TO MAKE NEEDS KNOWN AND FOLLOWS SIMPLE COMMANDS. PATIENT SKIN IS WARM AND DRY, PERIPHERAL IV SITE TO LEFT HAND 22 GAUGE AND RIGHT AC 20 GAUGE, BOTH ASYMPTOMATIC, PATENT AND INTACT. SHE HAS A SURGICAL INCISION WITH BESSIE DRAIN IN PLACE TO SEROSANGUINEOUS DRAINAGE. PATIENT IS ON 3L NASAL CANNULA, BREATH SOUNDS CLEAR, SR ON MONITOR, AFEBRILE. PATIENT HAS A SHAW CATHETER IN PLACE TO YELLOW URINE. HOB IS IN SEMI-FOWLERS IN THE LOWEST POSSIBLE POSITION, PATIENT PRESENTS NO SIGNS OF DISTRESS AT THIS TIME, CALL LIGHT IS WITHIN REACH. WILL CONTINUE TO MONITOR
--- NOTE | 2018-01-29 07:38 | NUR ---
PROVIDED PATIENT WITH BREAKFAST TRAY, DENIES ANY PAIN AT THIS TIME. WILL CONTINUE TO MONITOR
[2018-01-29] MEDS: LITHIUM CARBONATE 300 MG TAB PO SCH ×4 (08:27→20:13)
[2018-01-29] MEDS: LACTOBACILLUS RHAMNOSUS GG 1 EACH CAP PO SCH (08:27)
[2018-01-29] MEDS: CARVEDILOL 6.25 MG TAB PO SCH ×2 (08:27→20:13)
--- NOTE | 2018-01-29 09:35 | NUR ---
PATIENT IS ASLEEP, NO SIGNS OF DISTRESS NOTED, CALL LIGHT WITHIN REACH, WILL CONTINUE TO MONITOR.
[2018-01-29 09:42] LABS: BASOPHILS % (AUTO) 0.1 % (0.0-2.0); HEMATOCRIT 38.3 % (36-48); HEMOGLOBIN 12.4 g/dL (12.0-16.0); LYMPHOCYTES # (AUTO) 3.9 K/uL (2.5-16.5); LYMPHOCYTES % (AUTO) 19.9 % (20.5-51.1); MEAN CORPUSCULAR HEMOGLOBIN 30 pg (27-31); MEAN CORPUSCULAR HGB CONC 33 g/dL (33-37); MEAN CORPUSCULAR VOLUME 93.6 fL (80-94); MONOCYTES # (AUTO) 2.1 K/uL (0.8-1.0); MONOCYTES % (AUTO) 10.9 % (1.7-9.3); NEUTROPHILS # (AUTO) 13.4 K/uL (1.8-7.7); NEUTROPHILS % (AUTO) 69.1 % (42.2-75.2); PLATELET COUNT (AUTO) 263 K/uL (140-450); RED CELL DISTRIBUTION WIDTH 13.9 % (11.6-13.7); WHITE BLOOD COUNT (AUTO) 19.4 K/uL (4.8-10.8)
[2018-01-29 10:10] LABS: ALBUMIN 2.6 g/dL (3.4-5.0); ANION GAP 7.4 (8-16); CARBON DIOXIDE 31.5 mmol/L (21-32); CREATININE 0.7 mg/dL (0.6-1.3); POTASSIUM 3.9 mmol/L (3.5-5.1); TOTAL BILIRUBIN 0.5 mg/dL (0.0-1.0)
--- NOTE | 2018-01-29 10:40 | NUR ---
PATIENT FAMILY AT BEDSIDE, UPDATED ON PATIENT'S CONDITION. NO SIGNS OF DISTRESS NOTED AT THIS TIME
--- NOTE | 2018-01-29 11:53 | NUR ---
PROVIDED PATIENT WITH LUNCH TRAY, DENIES ANY PAIN OR SOB AT THIS TIME. EDUCATED ON IMPORTANCE OF GETTING UP AND MOVING. NO SIGNS OF DISTRESS NOTED AT THIS TIME.
--- NOTE | 2018-01-29 13:27 | NUR ---
IN TO SEE AND EXAMINE PATIENT, UPDATED ON PATIENT'S CONDITION, WILL FOLLOW UP ON ANY ORDERS.
--- NOTE | 2018-01-29 15:57 | NUR ---
PATIENT'S AT BEDSIDE, UPDATED ON PATIENT'S CONDITION, WILL CONTINUE TO MONITOR
--- NOTE | 2018-01-29 16:36 | NUR ---
FAXED CONCURRENT REVIEW TO [facility] [phone] PHONE [phone]
--- NOTE | 2018-01-29 16:57 | NUR ---
FAST FOOD SERVER AT BEDSIDE FOR ECHOCARDIOGRAM, NO SIGNS OF DISTRESS NOTED AT THIS TIME, WILL CONTINUE TO MONITOR.
--- NOTE | 2018-01-29 18:06 | NUR ---
PROVIDED PATIENT WITH DINNER TRAY, NO SIGNS OF ACUTE DISTRESS NOTED AT THIS TIME, PATIENT DENIES ANY NAUSEA OR VOMITING OR SOB. CALL LIGHT WITHIN REACH, WILL CONTINUE TO MONITOR
--- NOTE | 2018-01-29 18:31 | NUR ---
PATIENT'S FRIENDS AT BEDSIDE, NO SIGNS OF DISTRESS NOTED, CALL LIGHT WITHIN REACH, WILL CONTINUE TO MONITOR PATIENT.
--- NOTE | 2018-01-29 19:03 | NUR ---
ENDORSED REPORT FOR CONTINUITY OF CARE TO PIPING MANAGER RN AT BEDSIDE. PATIENT PRESENTS NO SIGNS OF DISTRESS AT THIS TIME.
--- NOTE | 2018-01-29 19:10 | NUR ---
RECEIVED REPORT FROM MORNING RN. PT IN STABLE CONDITION AT THIS TIME. PT ASLEEP BUT AROUSABLE TO NAME. PT COOPERATIVE AND FRIENDLY. ABLE TO MAKE NEEDS KNOWN. PT AFEBRILE. S1+S2 HEARD. SR ON MONITOR. PULSES ARE PALPABLE IN ALL EXTREMITIES. CAPILLARY REFILL LESS THAN 3 SECONDS. LUNG SOUNDS CLEAR. PT ON 3L/MIN VIA NC. DENIES SOB. PT DOES NOT APPEAR TO BE IN RESPIRATORY DISTRESS. ABDOMEN ROUND, SOFT AND SLIGHTLY DISTENDED. NO C/O N/V. BOWEL SOUNDS ACTIVE IN ALL QUADRANTS. SHAW CATHETER IN PLACE DRAINING CLEAR AND YELLOW URINE. NO C/O BURNING. SCD IN PLACE. PT HAS PERIPHERAL IV ACCESS ON RIGHT AC 20G AND LEFT HAND 22G BOTH LINES ARE ASYMPTOMATIC, PATENT AND INTACT. PT HAS BESSIE DRAIN THAT HAS SEROSANGUINOUS DRAINAGE. BED AT LOW POSSIBLE POSITION. CALL LIGHT WITHIN REACH. ALL SAFETY PRECAUTIONS ARE IN PLACE. WILL CONTINUE TO MONITOR PT.
--- NOTE | 2018-01-29 19:15 | NUR ---
RECEIVED PATIENT ON 3L NC. O2 SAT 96%. SCHEDULED BREATHING TREATMENT ADMINISTERED. PT TOLERATED TX WELL, NO ADVERSE SIDE EFFECTS. NO RESPIRATORY DISTRESS NOTED AT THIS TIME. WILL CONTINUE TO MONITOR.
[2018-01-29] MEDS: TEMAZEPAM 15 MG CAP PO SCH (20:14)
[2018-01-29] MEDS: OLANZapine 5 MG TAB PO SCH (20:15)
--- NOTE | 2018-01-29 20:30 | NUR ---
SHAW CATHETER BAG CHANGED. SHAW CATHETER CARE PROVIDED. NO C/O PAIN OR N/V. PT STATES THAT SHE IS FEELING OKAY. PT IS DROWSY AND STATES SHE WANTS TO WALK. INFORMED PT THAT PT WILL WORK WITH HER IN THE AM. KEPT CALL LIGHT WITHIN REACH. WILL CONTINUE TO MONITOR PT.
--- NOTE | 2018-01-29 23:40 | NUR ---
PT ASLEEP AT THIS TIME. CURRENTLY NO CHANGE IN CONDITION. VS STABLE. DOES NOT APPEAR TO BE IN ANY PAIN. CALL LIGHT WITHIN REACH. SHAW CATHETER DRAINING CLEAR AND YELLOW URINE. WILL CONTINUE TO MONITOR PT.
[2018-01-30] VITALS: BP 123/74
[2018-01-30] MEDS: ALBUTEROL SULFATE/IPRATROPIU 3 ML SOL IH SCH ×4 (01:19→19:31)
--- NOTE | 2018-01-30 01:30 | NUR ---
SCHEDULED BREATHING TX ADMINISTERED. SILVESTRE TX WELL, NO ADVERSE SIDE EFFECTS. PATIENT ON 3L NC, O2 SAT 99%. NO RESPIRATORY DISTRESS NOTED AT THIS TIME. WILL CONTINUE TO MONITOR.
--- NOTE | 2018-01-30 02:42 | NUR ---
PT AWAKE AND WATCHING TELEVISION. ABLE SLIGHTLY REPOSITION SELF. SHAW CATHETER STILL DRAINING CLEAR AND YELLOW URINE. VS STABLE. SR ON MONITOR AND NO SOB NOTED. OXYGEN SATURATION WNL. CALL LIGHT WITHIN REACH. WILL CONTINUE TO MONITOR PT.
[2018-01-30 04:00] VITALS: BP 116/71
[2018-01-30] MEDS: metroNIDAZOLE 500 MG/NS PREMIX 100 ML IV SCH ×3 (04:05→20:26)
--- NOTE | 2018-01-30 05:11 | NUR ---
BESSIE SITE DRESSING ON RLQ NOTED WITH LARGE AMOUNT OF DRY BLOOD, DRESSING CHANGED DONE, BESSIE SITE AREA NOTED CLEAN AND INTACT. BAND AID DRESSINGS ON THREE ABDOMINAL PUNCTURES CHANGED ALSO. PATIENT DENIES PAIN.
--- NOTE | 2018-01-30 06:10 | NUR ---
PT TRANSFERRED TO TELE. REPORT GIVEN TO OUSMANE MARTINEZ. PT IN STABLE CONDITION. ENDORSED TO FOLLOW-UP WITH THE DRESSING CHANGE AND TO NOTIFY MD REGARDING NO BM STILL. PT TRANSFERRED WITH NO BELONGINGS.
--- NOTE | 2018-01-30 06:15 | NUR ---
RECEIVED REPORT FROM COMMISSARY PRODUCTION SUPERVISOR ES. PATIENT RESTING IN BED, AWAKE ALERT ORIENTED X4, NO S/S OF DISTRESS NOTED, RESPIRATION EVEN AND UNLABORED, ON 3L O2. SURGICAL INCISIONS NOTED ON THE ABDOMEN WITH DRY DRESSING DRY AND INTACT, BESSIE DRAIN IN PLACE, SEROSANGUINEOUS DRAINAGE NOTED IN THE BESSIE DRAIN. SHAW CATHETER IN PLACE, DRAINING URINE BY GRAVITY. PATIENT IS ABLE TO MOVE HERSELF IN THE BED, FLATULENCE NOTED WHEN PATIENT MOVED HERSELF, STATED NO BOWEL MOVEMENT SINCE 01/25/18. CALL LIGHT WITHIN REACH, SAFETY MEASURE ENSURED, WILL CONTINUE TO MONITOR.
--- NOTE | 2018-01-30 07:23 | NUR ---
LOC AWAKE AND ALERT TOLERATED INCENTIVE SPIROMETRY THERAPY WELL WITHOUT ADVERSE REACTIONS NOTED ENCOURAGED PATIENT WITH ACKNOWLEDGEMENT TO USE EVERY 1-2 HOURS WHILE AWAKE Addendum: 01/30/18 at 0728 by Rod Alva RT BIPAP VISION AT BEDSIDE
--- NOTE | 2018-01-30 07:45 | NUR ---
ENDORSED TO FOLLOW-UP WITH THE DRESSING CHANGE AND TO NOTIFY MD REGARDING NO BM STILL. PATIENT IS RESTING IN BED IN STABLE CONDITION.
[2018-01-30 08:00] VITALS: BP 131/93
--- NOTE | 2018-01-30 08:10 | NUR ---
RECEIVED PATIENT REPORT AT BEDSIDE. PATIENT AWAKE AND ALERT. NO S/S OF DISTRESS. PATIENT RECEIVING 3L O2 VIA NC. NO SOB. NO C/O PAIN AT THIS TIME. 3 INCISIONS NOTED TO THE ABD COVERED WITH BANDAGES. BANDAGES CLEAN, DRY AND INTACT. BESSIE DRAIN IN NOTED TO THE LOWER ABD. 50ML OF LIGHT RED DRAINAGE NOTED. SHAW CATHETER IN PLACE DRAINING YELLOW URINE. PATIENT ON TELE MONITORING. BED LOWERED WITH CALL LIGHT WITHIN REACH. WILL CONTINUE TO MONITOR
[2018-01-30] MEDS: LITHIUM CARBONATE 300 MG TAB PO SCH ×4 (08:26→20:26)
[2018-01-30] MEDS: FUROSEMIDE 40 MG/4 ML VIAL IVP SCH (08:26)
[2018-01-30] MEDS: LACTOBACILLUS RHAMNOSUS GG 1 EACH CAP PO SCH (08:26)
[2018-01-30] MEDS: CARVEDILOL 6.25 MG TAB PO SCH ×2 (08:26→20:28)
--- NOTE | 2018-01-30 08:53 | NUR ---
DUE TO CHANGE IN DEV SCORE PATIENT HAS BEEN RESCREENED AND CATEGORIZED MODERATE RISK. PATIENT WILL BE SEEN WITHIN 3-5 DAYS OF TODAY. 01/28/18- 01/30/[address]
[2018-01-30 09:45] LABS: BASOPHILS % (AUTO) 0.1 % (0.0-2.0); HEMATOCRIT 42.8 % (36-48); HEMOGLOBIN 13.9 g/dL (12.0-16.0); LYMPHOCYTES # (AUTO) 3.8 K/uL (2.5-16.5); LYMPHOCYTES % (AUTO) 22.6 % (20.5-51.1); MEAN CORPUSCULAR HEMOGLOBIN 30 pg (27-31); MEAN CORPUSCULAR HGB CONC 32 g/dL (33-37); MEAN CORPUSCULAR VOLUME 93.7 fL (80-94); MONOCYTES # (AUTO) 1.7 K/uL (0.8-1.0); MONOCYTES % (AUTO) 10.3 % (1.7-9.3); NEUTROPHILS # (AUTO) 11.1 K/uL (1.8-7.7); PLATELET COUNT (AUTO) 283 K/uL (140-450); RED BLOOD CELL COUNT(AUTO) 4.57 MIL/uL (4.20-5.40); RED CELL DISTRIBUTION WIDTH 13.8 % (11.6-13.7); WHITE BLOOD COUNT (AUTO) 16.6 K/uL (4.8-10.8)
[2018-01-30 10:51] LABS: ALBUMIN 2.8 g/dL (3.4-5.0); ANION GAP 11.1 (8-16); CARBON DIOXIDE 31.9 mmol/L (21-32); CREATININE 0.8 mg/dL (0.6-1.3); TOTAL BILIRUBIN 0.5 mg/dL (0.0-1.0)
--- NOTE | 2018-01-30 11:29 | NUR ---
BESSIE DRAIN DISCONTINUED PER DR OTT'S ORDER. 35ML OF SEROSANGUINEOUS DRAINAGE NOTED. PATIENT TOLERATED WELL
[2018-01-30 12:00] VITALS: BP 105/72
--- NOTE | 2018-01-30 12:55 | NUR ---
PATIENT SEEN BY DR VACA
--- NOTE | 2018-01-30 13:04 | NUR ---
FAXED CONCURRENT REVIEW TO [facility] [phone] PHONE VIJI [phone]
--- NOTE | 2018-01-30 13:10 | NUR ---
SATURATION 98% ON SUPPLEMENTAL OXYGEN AT 3 PM VIA NC TITRATED FIO2 TO 2 LPM
--- NOTE | 2018-01-30 14:16 | NUR ---
01/30/18 RD INITIAL ASSESSMENT COMPLETED PLEASE REFER TO NUTRITION ASSESSMENT UNDER CARE ACTIVITY FOR ESTIMATED NUTRITIONAL NEEDS. 1. CONTINUE CLEAR LIQUID DIET TOLERATED 2. IF/WHEN MEDICALLY STABLE, CONSIDER ADVANCE DIET TOLERATED TO A REGULAR DIET. 3. RD TO FOLLOW-UP 3-5 DAYS, MODERATE RISK [address]
--- NOTE | 2018-01-30 15:02 | NUR ---
PATIENT AWAKE IN BED WITH FAMILY MEMBERS PRESENT AT BEDSIDE. NO S/S OF DISTRESS NOTED
[2018-01-30 16:00] VITALS: BP 124/52
--- NOTE | 2018-01-30 17:54 | NUR ---
PATIENT SEEN BY DR OTT. WOUND BANDAGES REMOVED AT BEDSIDE. DR ORDERS TO APPLY BETADINE TO THE INCISIONS AND LEAVE BRENDEN
--- NOTE | 2018-01-30 19:26 | NUR ---
PATIENT REPORT GIVEN AT BEDSIDE. PATIENT ENDORSED IN STABLE CONDITION
--- NOTE | 2018-01-30 20:25 | NUR ---
SEEN PT AWAKE. ALERT AND ORIENTED TO PLACE, EVENT. INITIAL ASSESSMENT DONE. PT HAS ABDOMINAL INCISION OPEN TO AIR AND ONE W/ 4X4 GAUZE-CLEAN, DRY& INTACT. VITAL SIGNS CHECKED. PT DENIES ANY PAIN. PLAN OF CARE DISCUSSED. ENCOURAGED TO USE IS 10X EVERY HOUR WHILE AWAKE. PT VERBALIZED UNDERSTANDING. SAFETY REINFORCED. PT IN CONTACT ISOLATION. WILL CONTINUE TO MONITOR.
[2018-01-30 20:27] VITALS: BP 111/62
[2018-01-30] MEDS: OLANZapine 5 MG TAB PO SCH (20:27)
[2018-01-30] MEDS: TEMAZEPAM 15 MG CAP PO SCH (20:28)
[2018-01-31] VITALS: BP 103/67
--- NOTE | 2018-01-31 01:00 | NUR ---
PT CALLED AND WANTS TO USE THE BATHROOM. MATTY ARRIOLA CAME TO HELP PT GO TO THE BATHROOM. PER ZEINAB, PT HAD LARGE BM.
[2018-01-31] MEDS: ALBUTEROL SULFATE/IPRATROPIU 3 ML SOL IH SCH ×4 (01:17→18:54)
--- NOTE | 2018-01-31 03:19 | NUR ---
PLACED PT ON 1LPM NC. SP02 96 HR 72. NO NOTED SOB. WILL CONTINUE TO MONITOR
[2018-01-31 04:55] VITALS: BP 123/71
--- NOTE | 2018-01-31 05:00 | NUR ---
SEEN PT ASLEEP BUT AROUSABLE. VITAL SIGNS CHECKED. PT DENIES ANY PAIN OR DISCOMFORT. SAFETY REINFORCED. CALL LIGHT W/IN REACH.
[2018-01-31] MEDS: metroNIDAZOLE 500 MG/NS PREMIX 100 ML IV SCH ×3 (05:16→20:53)
[2018-01-31 06:06] LABS: BASOPHILS % (AUTO) 0.1 % (0.0-2.0); HEMATOCRIT 39.4 % (36-48); HEMOGLOBIN 12.7 g/dL (12.0-16.0); LYMPHOCYTES # (AUTO) 5.3 K/uL (2.5-16.5); LYMPHOCYTES % (AUTO) 28.7 % (20.5-51.1); MEAN CORPUSCULAR HEMOGLOBIN 30 pg (27-31); MEAN CORPUSCULAR HGB CONC 32 g/dL (33-37); MEAN CORPUSCULAR VOLUME 92.9 fL (80-94); MONOCYTES # (AUTO) 2.4 K/uL (0.8-1.0); MONOCYTES % (AUTO) 13.2 % (1.7-9.3); NEUTROPHILS # (AUTO) 10.6 K/uL (1.8-7.7); PLATELET COUNT (AUTO) 247 K/uL (140-450); RED BLOOD CELL COUNT(AUTO) 4.24 MIL/uL (4.20-5.40); RED CELL DISTRIBUTION WIDTH 13.9 % (11.6-13.7); WHITE BLOOD COUNT (AUTO) 18.3 K/uL (4.8-10.8)
[2018-01-31 06:16] LABS: ALBUMIN 2.4 g/dL (3.4-5.0); ANION GAP 8.6 (8-16); CARBON DIOXIDE 32.6 mmol/L (21-32); CREATININE 0.7 mg/dL (0.6-1.3); POTASSIUM 4.2 mmol/L (3.5-5.1); TOTAL BILIRUBIN 0.4 mg/dL (0.0-1.0)
--- NOTE | 2018-01-31 07:16 | NUR ---
SATURATION 96% ON SUPPLEMENTAL OXYGEN AT 1 LPM VIA NC POST HHN THERAPY TITRATED TO ROOM AIR WILL CONTINUE TO MONITOR TRAIN STARTER TO NOTIFY RN
--- NOTE | 2018-01-31 07:30 | NUR ---
RECEIVED PATIENT REPORT FROM SOLE LEVELER RN AT BEDSIDE. PATIENT AWAKE AND ALERT, OX4. NO S/S OF DISTRESS. PATIENT IS ON RM AIR 91%, PLACED PT ON O2 NC 1L. DENIES PAIN AT THIS TIME. 3 INCISIONS NOTED TO THE ABD. RIGHT INCISION COVERED WITH GAUZE AND OTHERS PROCUREMENT INTERN. NO DRAINAGE NOTED. SITES ARE CLEAN AND DRY. SHAW CATHETER IN PLACE DRAINING YELLOW URINE. PATIENT ON TELE MONITORING. BED IN LOWEST POSITION, CALL LIGHT WITHIN REACH. WILL CONTINUE TO MONITOR
[2018-01-31 08:00] VITALS: BP 138/72
--- NOTE | 2018-01-31 08:20 | NUR ---
HELP PT AMB TO BATHROOM. PT HAD A LOOSE BM, DARK GREEN COLOR. PT NOW ON ROOM AIR PER RT, WEANING OFF O2. NO S/S OF ACUTE DISTRESS OR SOB AT THIS TIME.
[2018-01-31] MEDS: CARVEDILOL 6.25 MG TAB PO SCH ×2 (08:48→20:53)
[2018-01-31] MEDS: LACTOBACILLUS RHAMNOSUS GG 1 EACH CAP PO SCH (08:48)
[2018-01-31] MEDS: LITHIUM CARBONATE 300 MG TAB PO SCH ×4 (08:51→20:53)
[2018-01-31] MEDS: FUROSEMIDE 40 MG/4 ML VIAL IVP SCH (08:52)
--- NOTE | 2018-01-31 10:10 | NUR ---
SATURATION 95% ON ROOM AIR REJI/RN NOTIFIED SERVICE STATION EQUIPMENT MECHANIC TO INFORM NELLIE/DISCHARGE PLANNING
--- NOTE | 2018-01-31 10:10 | NUR ---
PT SITTING IN THE CHAIR NO S/S OF ACUTE DISTRESS. O2 SAT 95% ON RM AIR.
--- NOTE | 2018-01-31 10:14 | NUR ---
kerry/discharge planning notified of room air saturation of 95%
[2018-01-31 12:00] VITALS: BP 114/68
--- NOTE | 2018-01-31 13:36 | NUR ---
FAXED CONCURRENT REVIEW TO [facility] [phone] PHONE VIJI [phone]
--- NOTE | 2018-01-31 14:00 | NUR ---
PT SIGNED CONSENT FOR CT ABD WITH IV CONTRAST AND CONSENT FOR PICC INSERTION. PT VERBALIZED UNDERSTANDING.
[2018-01-31] MEDS: NACL 0.9% 1,000 ML IV SCH ×2 (14:02→23:25)
--- NOTE | 2018-01-31 15:50 | NUR ---
PT IS BACK FROM CT. NO S/S OF ACUTE DISTRESS, DENIES PAIN.
[2018-01-31 16:00] VITALS: BP 101/52
--- NOTE | 2018-01-31 18:45 | NUR ---
SPOKE TO DR OTT, MADE HIM AWARE OF THE CT RESULT, WBC LEVEL, PT TOLERATED FULL LIQ DIET TODAY. NO VOMITING. DENIES ANY PAIN. ASKING FOR DIET ORDER. STATED TO ADVANCE TO REGULAR.
--- NOTE | 2018-01-31 19:30 | NUR ---
REPORT GIVEN INSTRUCTOR ROBOTICS NURSE. PT IN STABLE CONDITION.
--- NOTE | 2018-01-31 19:51 | NUR ---
RECEIVED PATIENT REPORT FROM REJI RN AT BEDSIDE. PATIENT AWAKE AND ALERT, OX4. NO S/S OF DISTRESS. RR EVEN/UNLABORED. IV TO L HAND 20G PATENT AND INTACT, INFUSING WELL. SKIN WARM AND DRY TO TOUCH, COLOR WNL. INTIAL ASSESSMENT COMPLETED. PLAN OF CARE DISCUSSED WITH PT, ALL SAFETY PRECAUTIONS MET, CALL LIGHT WITHIN REACH, WILL CONTINUE TO MONITOR.
[2018-01-31 20:00] VITALS: BP 118/62
--- NOTE | 2018-01-31 20:30 | NUR ---
PAGED DR. CROCKER TO ASK IF HE WANTS LITHIUM LEVEL DRAW IN THE AM. PT HAS BEEN ON LITHIUM WITH NO LEVEL CHECK WHILE HERE. HE SAID OK TO ORDER
[2018-01-31] MEDS: OLANZapine 5 MG TAB PO SCH (20:52)
[2018-01-31] MEDS: TEMAZEPAM 15 MG CAP PO SCH (20:53)
--- NOTE | 2018-01-31 20:54 | NUR ---
ALL DUE MEDICATIONS GIVEN WITH EDUCATION. PT VERBALIZED UNDERSTANDING. PT TOLERATED WELL.
--- NOTE | 2018-01-31 22:15 | NUR ---
PICC LINE NURSE CALLED AND STATED HE WILL BE HERE IN 45 MINS.
--- NOTE | 2018-01-31 23:09 | NUR ---
PICC LINE NURSE CALLED AND SAID HE IS 10 MINS AWAY, WILL NOTIFY US TECH
--- NOTE | 2018-01-31 23:10 | NUR ---
US TECH MADE AWARE, NO ONE ON SITE, WILL COME FROM [facility]
--- NOTE | 2018-01-31 23:15 | NUR ---
US TECH ON THE WAY FROM [facility]
[2018-02-01] VITALS: BP 110/68
--- NOTE | 2018-02-01 00:10 | NUR ---
TIME OUT DONE WITH PICC LINE NURSE AND US TECH AT THE BEDSIDE, PT IN STABLE CONDITION. NO S/S OF DISTRESS NOTED
--- NOTE | 2018-02-01 00:41 | NUR ---
PICC INSERTION DONE. X-RAY TECH GOPAL MADE AWARE OF STAT ORDER CHECK
--- NOTE | 2018-02-01 00:44 | NUR ---
X-RAY TECH GOPAL IN NOW FOR X-RAY
--- NOTE | 2018-02-01 00:48 | NUR ---
PICC LINE IN PLACE IN L UPPER ARM, PLACEMENT CONFIRMED WITH X-RAY
[2018-02-01] MEDS: ALBUTEROL SULFATE/IPRATROPIU 3 ML SOL IH SCH ×3 (01:17→13:00)
[2018-02-01 04:00] VITALS: BP 118/62
[2018-02-01] MEDS: metroNIDAZOLE 500 MG/NS PREMIX 100 ML IV SCH ×2 (04:24→13:06)
[2018-02-01 06:02] LABS: HEMOGLOBIN 12.7 g/dL (12.0-16.0); MEAN CORPUSCULAR HEMOGLOBIN 31 pg (27-31); MEAN CORPUSCULAR HGB CONC 33 g/dL (33-37); MEAN CORPUSCULAR VOLUME 93.8 fL (80-94); PLATELET COUNT (AUTO) 241 K/uL (140-450); RED BLOOD CELL COUNT(AUTO) 4.06 MIL/uL (4.20-5.40); RED CELL DISTRIBUTION WIDTH 12.8 % (11.6-13.7); WHITE BLOOD COUNT (AUTO) 18.8 K/uL (4.8-10.8)
[2018-02-01 06:35] LABS: ALBUMIN 2.3 g/dL (3.4-5.0); ANION GAP 6.3 (8-16); CARBON DIOXIDE 33.6 mmol/L (21-32); CREATININE 0.7 mg/dL (0.6-1.3); POTASSIUM 3.9 mmol/L (3.5-5.1); TOTAL BILIRUBIN 0.4 mg/dL (0.0-1.0)
[2018-02-01 07:08] LABS: LYMPHOCYTES % (MANUAL) 17 % (20-46); MONOCYTES % (MANUAL) 9 % (5-12)
--- NOTE | 2018-02-01 07:33 | NUR ---
REPORT GIVEN TO DAY NURSE FOR CONTINUITY OF CARE, PT IN STABLE CONDITION.
--- NOTE | 2018-02-01 07:38 | NUR ---
RECEIVED REPORT FROM CANAL DRIVER NURSE BRYAN, PT IS AWAKE AND LYING ON THE BED, WITH AN IV LINE ON RIGHT HAND G.20 AND A PICC LINE ON LEFT ARM TOO. SIDE RAILS UP AND CALL LIGHT WITHIN REACH. NO SIGN OF DISTRESS NOTED. WILL MONITOR
[2018-02-01 08:00] VITALS: BP 116/75
--- NOTE | 2018-02-01 08:05 | NUR ---
PT IS AWAKE AND LYING ON THE BED, VITAL SIGNS TAKEN AND NO SIGN OF DISTRESS NOTED. CALL LIGHT WITHIN REACH. WILL MONITOR.
[2018-02-01] MEDS: LACTOBACILLUS RHAMNOSUS GG 1 EACH CAP PO SCH (08:51)
[2018-02-01] MEDS: FUROSEMIDE 40 MG/4 ML VIAL IVP SCH (08:52)
[2018-02-01] MEDS: LITHIUM CARBONATE 300 MG TAB PO SCH ×2 (08:52→13:06)
[2018-02-01] MEDS: CARVEDILOL 6.25 MG TAB PO SCH (08:52)
--- NOTE | 2018-02-01 09:00 | NUR ---
PT, NAKITA WAS WITH THE PT AND DOING THE EXERCISE WITH THE PT. NO SIGN OF SOB AND DISTRESS NOTED.
--- NOTE | 2018-02-01 09:14 | NUR ---
PT IS AWAKE AND BACK ON THE BED AFTER THE PT EXERCISE, MEDICATIONS GIVEN, PT TOLERATED IT. NO SIGN OF DISTRESS NOTED. WILL MONITOR.
[2018-02-01] MEDS: NACL 0.9% 1,000 ML IV SCH (09:25)
--- NOTE | 2018-02-01 11:40 | NUR ---
PT IS AWAKE AND TALKING TO FAMILY MEMBERS ON THE BEDSIDE. VITAL SIGNS TAKEN AND NO SIGN OF DISTRESS NOTED. CALL LIGHT WITHIN REACH AND WILL CONTINUE TO MONITOR.
--- NOTE | 2018-02-01 12:33 | NUR ---
Spoke to Elsy on 01/31/18 and informed her that patient will have a picc line and stated that to use [facility] for meds and to use [facility] for home health phone number [phone]
--- NOTE | 2018-02-01 13:13 | NUR ---
PT IS AWAKE AND TALKING TO THE SISTER ON THE BEDSIDE, MEDICATIONS GIVEN AND PT TOLERATED IT. NO SIGN OF DISTRESS NOTED. CALL LIGHT WITHIN REACH. WILL MONITOR.
--- NOTE | 2018-02-01 13:50 | NUR ---
AWAKE AND ALERT NO EVIDENCE OF RESPIRATORY DISTRESS NOTED [facility]ISE PATIENT DISCHARGING FROM FACILITY REFUSED 1300 HHN THERAPY
--- NOTE | 2018-02-01 13:58 | NUR ---
RECEIVED A CALL FROM FRANCO CHRISTY INFORMING ME THAT SHE WILL DISCHARGE THE PT., ORDER ACKNOWLEDGED AND WILL FACILITATE DISCHARGE PROCESS.
--- NOTE | 2018-02-01 14:01 | NUR ---
Spoke to Zachary at [facility] and informed to arrange Rocephin 1 gm for home infusion and patient has picc line and order faxed to Zachary at [phone]. also spoke to [facility] and order faxed to [phone].
[2018-02-01] MEDS ORDERED: METR500T1 PO (15:02)
[2018-02-01] MEDS ORDERED: CARV6.25 PO (15:02)
[2018-02-01] MEDS ORDERED: ROC2I IV (15:06)
--- NOTE | 2018-02-01 15:14 | NUR ---
Spoke to Zachary at [facility] and will deliver the IV medication to the patient house [facility], also Zachary spoke to the home health nurse at [facility] to coordinate the delivery.
--- NOTE | 2018-02-01 16:30 | NUR ---
DISCHARGED PT VIA WHEELCHAIR WITH THE AND FRIEND. IV LINE AND ARM BANDS REMOVED. PT ISNSTUCTIONS GIVEN. PT IS STABLE AT THIS TIME.
--- NOTE | 2018-02-04 15:40 | NUR ---
1330 RECEIVED CALL FROM DAVID AT [facility] [phone] AND SHE STATED THAT THEY HAVE BEEN SEEING PT SINCE 02/02 AND HAVE NOT RECEIVED AUTHORIZATION YET FROM INSURANCE COMPANY. CALLED [facility] [phone] AND SPOKE WITH SJ AND INFORMED HER THAT PT WAS DISCHARGE HOME 02/01 TO CONTINUE IV ANTIBIOTICS AND [facility] HAS BEEN PROVIDING NURSING SERVICES AND NEEDS AUTHORIZATION. FAXED CLINICAL INFORMATION TO [facility] AT [phone]. CALLED DAVID BACK TO PROVIDE WITH UPDATE. Addendum: 02/04/18 at 1547 by Estella Hidalgo CM TIME CALL RECEIVED WAS 1530
--- NOTE | 2018-02-06 08:56 | NUR ---
SOCIAL SERVICE NOTE: I FAXED DISCHARGE SUMMARY TO [facility], FAX , CM VIJI
== END 2018-02-01 16:30 | disposition home health service (06) | DRG 710 ==
LOC: MED 03:35 → MTU 05:13 → MIC 01-26 22:00 → MTU 01-30 06:15
PROVIDERS: ADMIT Hospitalist; ATTEND Hospitalist
PROC: 0DTJ4ZZ Resection of Appendix, Percutaneous Endoscopic Approach (ICD-10-PCS; principal; 2018-01-25 08:00)
PROC: 5A09457 Assistance with Respiratory Ventilation, 24-96 Consecutive Hours, Continuous Positive Airway Pressure (ICD-10-PCS; 2018-01-27)
PROC: 02HV33Z Insertion of Infusion Device into Superior Vena Cava, Percutaneous Approach (ICD-10-PCS; 2018-01-31)
PROC: B548ZZA Ultrasonography of Superior Vena Cava, Guidance (ICD-10-PCS; 2018-01-31)
DX: A41.51 Sepsis due to Escherichia coli [E. coli] (principal); J96.01 Acute respiratory failure with hypoxia; J18.9 Pneumonia, unspecified organism; K35.2 Acute appendicitis with generalized peritonitis; I11.0 Hypertensive heart disease with heart failure; I50.9 Heart failure, unspecified; I48.0 Paroxysmal atrial fibrillation; F20.9 Schizophrenia, unspecified; K35.3 Acute appendicitis with localized peritonitis; K66.0 Peritoneal adhesions (postprocedural) (postinfection); F41.9 Anxiety disorder, unspecified; F32.9 Major depressive disorder, single episode, unspecified; Z88.0 Allergy status to penicillin; Z90.710 Acquired absence of both cervix and uterus
CPT/HCPCS: 36415; 36600; 71045; 71250; 71275; 80053; 80178; 81003; 81025; 82374; 82803; 82948; 83605; 83690; 83735; 83880; 84484; 85025; 85610; 87040; 87070; 87075; 87081; 87186; 87205; 88304; 93005; 93970; 94640; 94660; 96361; 96374; 96375; 97110; 97116; 97140; 97530; 99285; C1751; J0282; J0330; J0456; J0696; J1100; J1885; J1940; J1956; J2060; J2175; J2250; J2270; J2405; J2704; J2710; J3010; J3490; J7030; J7060; J7620; Q0092; Q9967; S0119